=== PATIENT | male | born 1985 | race Caucasian/White ===

== ENCOUNTER 2016-05-18 09:00 | Emergency (ER) | payer MEDICAID ==
[~2016-05-18] VITALS: Ht 165.1 cm; Wt 81.8 kg
[2016-05-18] MEDS ORDERED: LIDOCAINE HCL BUFFERED 1% 20 ML VIAL INJ ONE (09:45)
[2016-05-18] MEDS ORDERED: BACITRACIN 0.9 GM PACKET OINTMENT TP ONE (10:15)
[2016-05-18 10:51] VITALS: BP 122/86
== END 2016-05-18 10:53 | disposition home or self-care (01) ==
LOC: EMS 09:02
DX: S61.412A Laceration without foreign body of left hand, initial encounter (principal); W45.8XXA Other foreign body or object entering through skin, initial encounter; Y93.89 Activity, other specified; Y92.89 Other specified places as the place of occurrence of the external cause; Y99.8 Other external cause status
CPT/HCPCS: 12001; 73130; 99284; J3490; 96374